=== PATIENT | male | born 1995 | race Caucasian/White ===

== ENCOUNTER 2021-02-09 11:10 | Emergency (ER) | payer BC, SELFPAY ==
[2021-02-09 11:11] VITALS: BP 124/72; PULSE 110; RESP 26; TEMP 37.2; O2SAT 87; BMI 39.0
[2021-02-09 11:19] VITALS: BMI 39.0
--- NOTE | 2021-02-09 11:20 | XR_ITS ---
PROCEDURE: XR CHEST PORTABLE CLINICAL HISTORY: cough COMPARISON: CT CT ANGIO CHEST PE PROTOCOL from 02/09/2021 FINDINGS: The cardiomediastinal silhouette and pulmonary vascularity are within normal limits. Multifocal ground-glass opacities consistent with Covid19 pneumonia bilaterally. No acute bony abnormalities. IMPRESSION: Numerous multifocal ground-glass infiltrates consistent Covid19 pneumonia Dictated by: Cas Thomas MD 02/09/2021 12:04 Cas Thomas MD in [facility] 02/09/2021 12:04
--- NOTE | 2021-02-09 11:21 | [facility].EDGENADL ---
ED Disposition Clinical Impression: Pneumonia due to COVID-19 virus Respiratory failure with hypoxia Qualifiers: Chronicity: acute Qualified Code(s): J96.01 - Acute respiratory failure with hypoxia Disposition: Left Against Medical Advice Condition on Discharge: Serious Referrals: Provider,Referral, [Primary Care Provider] - - Critical Care Critical Care Time: No Attestation: On , the high probability of a clinically significant, sudden or life threatening deterioration of the following system(s) required my full and direct attention, intervention and personal management. The time I documented below is in addition to time spent performing reported procedures but includes the following listed in this critical care notation. Medical Decision Making - [place] Inquiry Pt receiving controlled substance: No Vital Signs: 02/09/21 11:11 02/09/21 11:30 02/09/21 12:00 Temperature 98.9 F Temperature Source Oral Pulse Rate 101 H 102 H Pulse Rate [Right] 110 H Respiratory Rate 26 H 15 16 Blood Pressure 128/70 135/70 Blood Pressure [Right Arm] 124/72 Blood Pressure Mean 86 84 Blood Pressure Mean [Right Arm] 89 Blood Pressure Source Blood Pressure Source [Right Arm] Automatic Cuff Blood Pressure Position Blood Pressure Position [Right Arm] Sitting 02 Sat by Pulse Oximetry 87 L 95 96 Oxygen Delivery Method Room Air Oxygen Flow Rate (LPM) 02/09/21 12:42 02/09/21 13:01 02/09/21 13:41 Temperature 98.6 F Temperature Source Oral Pulse Rate 109 H 112 H 98 H Pulse Rate [Right] Respiratory Rate 20 20 20 Blood Pressure 143/80 H 130/78 130/70 Blood Pressure [Right Arm] Blood Pressure Mean 101 91 Blood Pressure Mean [Right Arm] Blood Pressure Source Automatic Cuff Blood Pressure Source [Right Arm] Blood Pressure Position Sitting Blood Pressure Position [Right Arm] 02 Sat by Pulse Oximetry 90 L 94 L Oxygen Delivery Method Nasal Cannula Oxygen Flow Rate (LPM) 3 - Lab Data Lab Results 02/09/21 11:10: WBC 7.7, RBC 5.30, Hgb 14.2, Hct 41.6 L, MCV 78.5 L, MCH 26.9 L, MCHC 34.2, RDW 13.2, Plt Count 225, MPV 8.6, Neut % (Auto) 81.4 H, Lymph % (Auto) 12.6, [place] % (Auto) 5.7, Eos % (Auto) 0.2, Baso % (Auto) 0.1, Neut # (Auto) 6.3, Lymph # (Auto) 1.0, [place] # (Auto) 0.4, Eos # (Auto) 0.0, Baso # (Auto) 0.0 02/09/21 11:10: Sodium 137, Potassium 3.4 L, Chloride 103, Carbon Dioxide 22, Anion Gap 15.4 H, BUN 11, Creatinine 0.90, Estimated Creat Clear 223, Estimated GFR 102, Est GFR ( Amer) 123, Glucose 110 H, Calcium 8.8, Total Bilirubin 0.5, AST 47, ALT 33, Alkaline Phosphatase 46, Total Protein 7.5, Albumin 4.3, Globulin 3.2, Albumin/Globulin Ratio 1.3 02/09/21 11:10: Lactate 1.0 02/09/21 11:10: ESR 37 H 02/09/21 11:10: D-Dimer 0.83 H 02/09/21 11:10: Ferritin 280, Lactate Dehydrogenase 442, C-Reactive Protein 56.4 H 02/09/21 11:10: Procalcitonin 0.091 02/09/21 11:10: SARS-CoV-2 (PCR) Detected A, Influenza A Untype (PCR) Not detected, Influenza Type B (PCR) Not detected Result diagrams: 02/09/21 11:10 02/09/21 11:10 Orders (Tests/Meds): ED MEDICATIONS Discontinued Medications Generic Name Dose Route Start Last Admin Trade Name Freq PRN Reason Stop Dose Admin Dexamethasone Sodium Phosphate 10 mg 02/09/21 12:44 02/09/21 12:56 Dexamethasone 4mg/Ml 1ml Vial IV 02/09/21 12:45 10 mg ONCE ONE Administration Sodium Chloride 1,000 mls @ 999 mls/hr 02/09/21 11:30 Sod Chlor 0.9% 1000ml Bag IV 02/09/21 12:30 .Q1H1M JAZIEL Sodium Chloride 1,000 mls @ 100 mls/hr 02/09/21 11:30 02/09/21 11:42 Sod Chlor 0.9% 1000ml Bag IV 03/11/21 11:29 100 mls/hr .Q10H JAZIEL Administration Iopamidol 70 ml 02/09/21 11:52 02/09/21 11:53 Iopamidol-370 (76%);100ml Bottle IV 02/09/21 11:53 70 ml ONCE ONE Administration Sodium Chloride 20 ml 02/09/21 11:52 02/09/21 11:53 0.9% Sodium Chloride 20ml Vial IV 02/09/21 11:53 20 ml ONCE ONE
--- NOTE | 2021-02-09 11:24 | CT_ITS ---
PROCEDURE: CT ANGIO CHEST PE PROTOCOL CLINCIAL INDICATION: hypoxia, covid, pleuritic cp, r/o pe COMPARISON: CR XR CHEST PORTABLE from 02/09/2021 TECHNIQUE: IV Contrast: 70ML Isovue 370 Axial images obtained with sagittal and coronal reformats. All CT scans at the facility use one or more dose reduction, viz: automated exposure control, ma/kV adjustment per patient size (including targeted exams where dose is matched to indication, i.e. head), or iterative reconstruction technique. FINDINGS: HEART AND MEDIASTINAL STRUCTURES: There is poor pulmonary arterial opacification. No large central pulmonary embolus is evident. Peripheral pulmonary emboli not well evaluated with this degree of contrast opacification. Mild mediastinal adenopathy. No evidence of aortic aneurysm or dissection. LUNGS AND PLEURAL SPACES: Multifocal areas of infiltrate in both lungs within upper and lower lobes, right middle lobe and lingula. No effusions. No evidence of pneumothorax. Areas of infiltrate could obscure underlying pulmonary nodules. BONY STRUCTURES: Degenerative changes thoracic spine UPPER ABDOMEN: Splenomegaly. Fatty liver ADDITIONAL FINDINGS: No other significant abnormalities. IMPRESSION: 1. Multifocal bilateral pneumonia consistent with Covid19 pneumonia 2. No evidence of central pulmonary embolus. Peripheral pulmonary arteries are not adequately assessed due to the poor arterial opacification. No obvious embolus apparent 3. Splenomegaly 4. Mild mediastinal adenopathy Dictated by: Cas Thomas MD 02/09/2021 12:03 Cas Thomas MD in [facility] 02/09/2021 12:03
[2021-02-09 11:28] LABS: Basophils % 0.1 % (0.1-2.0); Eosinophils % 0.2 % (0.1-12.0); Hematocrit 41.6 % (42.0-52.0); Hemoglobin 14.2 g/dL (14.1-18.0); Lymphocytes % 12.6 % (10-50); Mean Corpuscular HGB Conc 34.2 g/dL (31.8-35.4); Mean Corpuscular Hemoglobin 26.9 pg (27.0-31.2); Mean Corpuscular Volume 78.5 fl (80-94); Mean Platelet Volume 8.6 fl (7.4-10.4); Monocytes # 0.4 K/mm3 (0.1-1.0); Monocytes % 5.7 % (1.7-9.3); Neutrophils # 6.3 K/mm3 (1.8-7.8); Neutrophils % 81.4 % (37.0-80.0); Platelet Count 225 K/mm3 (142-424); Red Cell Distribution Width 13.2 % (11.5-17.5); White Blood Count 7.7 K/mm3 (4.8-10.8)
[2021-02-09 11:30] VITALS: BP 128/70; PULSE 101; RESP 15; O2SAT 95
[2021-02-09 11:32] LABS: Chloride 103 mmol/L (98-107); Potassium 3.4 mmoL/L (3.5-5.1); Sodium 137 mmol/L (136-145)
[2021-02-09 11:35] LABS: Alanine Aminotransferase 33 U/L (12-78); Albumin Level 4.3 g/dl (3.5-5.0); Albumin/Globulin Ratio 1.3 (1.1-1.8); Alkaline Phosphatase 46 U/L (38-126); Anion Gap 15.4 mEq/L (5-15); Aspartate Amino Transferase 47 U/L (17-59); Bilirubin,Total 0.5 mg/dl (0.2-1.3); Blood Urea Nitrogen 11 mg/dl (9-20); Calcium 8.8 mg/dl (8.4-10.2); Carbon Dioxide 22 mmol/L (22.0-30.0); Creatinine Clearance Estimated 223 mL/min (50-200); Estimated Glomerular Filt Rate 102 ml/min (>60); GFR (African American) 123 ML/MIN (>60); Globulin 3.2 g/dL (1.3-3.2); Glucose 110 mg/dl (74-100); Total Protein,Serum 7.5 g/dl (6.3-8.2)
[2021-02-09 11:45] LABS: D-Dimer 0.83 ug/mL (0.0-0.5)
--- NOTE | 2021-02-09 11:55 | PC.NURSE ---
PT was placed on 3lpm NC when arrived and sats immediately increased to 90's. PT advised that he felt much better with the O2.
--- NOTE | 2021-02-09 11:58 | PC.NURSE ---
Pt. back from CT
[2021-02-09 12:00] VITALS: BP 135/70; PULSE 102; RESP 16; O2SAT 96
[2021-02-09 12:00] LABS: Procalcitonin 0.091 ng/mL (0.0-2.0)
[2021-02-09 12:01] LABS: Erythrocyte Sedimentation Rate 37 mm/hr (0-15)
[2021-02-09 12:21] LABS: Influenza A, PCR Not Detected (NotDetected); Influenza B, PCR Not Detected (NotDetected)
[2021-02-09 12:31] LABS: C-Reactive Protein 56.4 mg/L (0-4)
[2021-02-09 12:42] VITALS: BP 143/80; PULSE 109; RESP 20; O2SAT 90
[2021-02-09 13:01] VITALS: BP 130/78; PULSE 112; RESP 20; O2SAT 94
[2021-02-09 13:03] LABS: Ferritin 280 ng/ml (17.9-464)
[2021-02-09 13:06] LABS: Lactate Dehydrogenase 442 U/L (313-618)
[2021-02-09 13:08] LABS: Coronavirus 19, PCR Detected (NotDetected)
--- NOTE | 2021-02-09 13:35 | PC.NURSE ---
Went in and spoke with patient who advised he wnated to sign AMA form and did not want to be admitted here. Advised he would prefer to go directly to [facility] for possible admission there due to all his doctors being there. Explained to patient that his sats were in the 80's when he arrived and he was requiring O2, and that it showed pneumonia on his films. PT advised he understood and that his mom and sister were out in the parking lot waiting on him and that his sister would drive him to [facility]. Pt signed AMA form and IV was removed. I escorted patient out to the parking lot and spoke with both his sister and mother. Sister advised she was taking him directly to [facility]. Pt and family all verbalized understanding of patient's condition at this time.
[2021-02-09 13:41] VITALS: BP 130/70; PULSE 98; RESP 20; TEMP 37; O2SAT 91
== END 2021-02-09 13:43 | disposition left against medical advice (07) ==
PROVIDERS: Emergency Provider Emergency Medicine
DX: U07.1 COVID-19 (principal); J12.82 Pneumonia due to coronavirus disease 2019
CPT/HCPCS: 71045; 71275; 80053; 82728; 83605; 83615; 84145; 85025; 85378; 85651; 86140; 87040; 96374; 99284; C9803; Q9967; U0003; U0005